=== PATIENT | female | born 1990 | race Caucasian/White ===

== ENCOUNTER 2016-07-11 03:12 | Inpatient (IN) | payer OTHER ==
[~2016-07-11] VITALS: Ht 167.6 cm; Wt 60.8 kg
[2016-07-11 04:07] LABS: Basophils # (auto) 0.1 uL; Basophils % (auto) 1.1 % (0.0-2.0); Eosinophils # (auto) 0.1 uL; Eosinophils % (auto) 0.9 % (0.0-7.0); Hematocrit 42.7 % (36.0-46.0); Hemoglobin 14.4 g/dL (12.2-16.2); Lymphocytes # (auto) 2.5 uL; Lymphocytes % (auto) 32.7 % (10.0-50.0); Mean Corpuscular Hemoglobin 32.1 pg (28.0-32.0); Mean Corpuscular Hgb Conc. 33.6 g/dL (32.0-36.0); Mean Corpuscular Volume 95.3 fL (80.0-100.0); Mean Platelet Volume 7.8 fL (7.4-10.4); Monocytes # (auto) 0.2 uL; Monocytes % (auto) 2.9 % (0.0-12.0); Neutrophils # (auto) 4.8 uL; Neutrophils % (auto) 62.4 % (37.0-80.0); Platelet Count (auto) 393 10^3/uL (140-450); Red Cell Distribution Width 13.1 % (11.6-16.0); White Blood Cell 7.7 10^3/uL (4.4-10.8)
[2016-07-11] MEDS ORDERED: SODIUM CHLORIDE 0.9% 1,000 ML IV ONE (04:15)
[2016-07-11 04:22] LABS: Albumin 4.9 g/dL (3.4-5.0); BUN/Creatinine Ratio 10.3; Calcium 8.4 mg/dL (8.5-10.1); Potassium 3.6 mmol/L (3.5-5.1)
[2016-07-11 04:24] LABS: Salicylate 4.5 mg/dL (2.8-20.0)
[2016-07-11 04:30] LABS: Bilirubin, Total 0.3 mg/dL (0.2-1.0)
[2016-07-11 04:39] LABS: Acetaminophen < 2.0 ug/mL (10-30)
[2016-07-11 05:26] LABS: Urine RBC None Seen /hpf (0 - 4)
[2016-07-11 05:53] LABS: Urine Bilirubin Negative (Negative); Urine Blood Negative /uL (Negative); Urine Color Colorless (Yellow); Urine Glucose Normal (Normal); Urine Ketone Negative (Negative); Urine Nitrite Negative (Negative); Urine Urobilinogen Normal (Negative)
[2016-07-11] MEDS ORDERED: lamoTRIgine 100 MG TAB PO ONE (06:15)
[2016-07-11] MEDS ORDERED: SOD CHL 0.45% 1,000 ML IV ONE (07:00)
[2016-07-11] MEDS ORDERED: MIDAZOLAM HCL 1MG/1ML-2 ML VIAL IV ONE ×2 (07:00→08:00)
[2016-07-11] MEDS ORDERED: IBUPROFEN 600 MG TAB PO PRN (09:15)
[2016-07-11] MEDS ORDERED: TEMAZEPAM 15 MG CAP PO PRN (09:15)
[2016-07-11] MEDS ORDERED: ALBUTEROL SULF 2.5 MG/0.5ML(0.5%) NEB SOLN NEB PRN (09:15)
[2016-07-11] MEDS ORDERED: DOCUSATE SOD 100 MG CAP PO PRN (09:15)
[2016-07-11] MEDS ORDERED: LORazepam 2MG/ML-1ML VIAL IV PRN (09:15)
[2016-07-11] MEDS ORDERED: MORPHINE SULF INJ 2 MG/ML SYRINGE 1ML IV PRN (09:15)
[2016-07-11] MEDS ORDERED: ACETAMINOPHEN 325 MG TAB PO PRN (09:15)
[2016-07-11] MEDS ORDERED: NITROGLYCERIN 0.4 MG SL TAB SL PRN (09:15)
[2016-07-11] MEDS ORDERED: ALUM & MAG HYDROX-SIMETH LIQ(MAALOX) 30 ML PO PRN (09:30)
[2016-07-11] MEDS ORDERED: chlordiazePOXIDE HCL 25 MG CAP PO PRN (09:30)
[2016-07-11] MEDS: BUDESONIDE (INHALATION) 0.5 MG/2 ML NEB NEB SCH ×2 (10:00→18:37)
[2016-07-11] MEDS: clonazePAM 0.5 MG TAB PO SCH ×2 (10:00→21:36)
[2016-07-11] MEDS: NAPROXEN 500 MG TAB PO SCH ×2 (10:00→21:38)
[2016-07-11] MEDS: MULTIPLE VITAMIN TAB PO SCH (10:00)
[2016-07-11] MEDS: ASCORBIC ACID 500 MG TAB PO SCH ×2 (10:00→21:37)
[2016-07-11] MEDS: ZINC SULFATE 220 MG CAP PO SCH (10:00)
[2016-07-11] MEDS: ONDANSETRON HCL 4 MG/2 ML VIAL IV PRN (10:38)
[2016-07-11] MEDS: MORPHINE SULF INJ 2 MG/ML SYRINGE 1ML IV PRN ×2 (10:38→20:34)
[2016-07-11 10:50] VITALS: BP 101/83
[2016-07-11 13:00] VITALS: BP 90/40
[2016-07-11 13:39] VITALS: BP 101/83
[2016-07-11] MEDS: SODIUM CHLOR 0.9% PF (SALINE LOCK) 10ML VIAL IV SCH ×2 (13:52→21:36)
[2016-07-11] MEDS: HYDROcodone-ACET 5/325MG TAB PO PRN (15:46)
[2016-07-11 17:00] VITALS: BP 95/45
[2016-07-11 20:00] VITALS: BP 97/53
[2016-07-11 21:20] VITALS: BP 97/53
[2016-07-11] MEDS ORDERED: lamoTRIgine 100 MG TAB PO SCH (22:00)
[2016-07-12] MEDS: MORPHINE SULF INJ 2 MG/ML SYRINGE 1ML IV PRN ×2 (02:00→09:14)
[2016-07-12 05:00] VITALS: BP 94/60
[2016-07-12] MEDS: SODIUM CHLOR 0.9% PF (SALINE LOCK) 10ML VIAL IV SCH (06:05)
[2016-07-12 06:28] LABS: Basophils # (auto) 0 uL; Basophils % (auto) 0.5 % (0.0-2.0); Eosinophils # (auto) 0.1 uL; Eosinophils % (auto) 2.1 % (0.0-7.0); Hematocrit 35.6 % (36.0-46.0); Hemoglobin 11.8 g/dL (12.2-16.2); Lymphocytes # (auto) 3.1 uL; Mean Corpuscular Hemoglobin 31.8 pg (28.0-32.0); Mean Corpuscular Hgb Conc. 33.3 g/dL (32.0-36.0); Mean Corpuscular Volume 95.6 fL (80.0-100.0); Monocytes # (auto) 0.4 uL; Monocytes % (auto) 6.8 % (0.0-12.0); Neutrophils # (auto) 2.9 uL; Neutrophils % (auto) 43.6 % (37.0-80.0); Platelet Count (auto) 327 10^3/uL (140-450); Red Cell Distribution Width 13.3 % (11.6-16.0); White Blood Cell 6.6 10^3/uL (4.4-10.8)
[2016-07-12 07:05] LABS: Albumin 3.5 g/dL (3.4-5.0); BUN/Creatinine Ratio 16.2; Bilirubin, Total 0.5 mg/dL (0.2-1.0); Calcium 8.6 mg/dL (8.5-10.1); Potassium 3.8 mmol/L (3.5-5.1); Total Protein 5.5 g/dL (6.4-8.2)
[2016-07-12] MEDS: BUDESONIDE (INHALATION) 0.5 MG/2 ML NEB NEB SCH (07:28)
[2016-07-12 09:00] VITALS: BP 107/63
[2016-07-12] MEDS: ZINC SULFATE 220 MG CAP PO SCH (09:13)
[2016-07-12] MEDS: ASCORBIC ACID 500 MG TAB PO SCH (09:14)
[2016-07-12] MEDS: NAPROXEN 500 MG TAB PO SCH (09:14)
[2016-07-12] MEDS: clonazePAM 0.5 MG TAB PO SCH (09:14)
[2016-07-12] MEDS: MULTIPLE VITAMIN TAB PO SCH (09:14)
[2016-07-12] MEDS: ONDANSETRON HCL 4 MG/2 ML VIAL IV PRN (09:15)
[2016-07-12] MEDS ORDERED: lamoTRIgine 100 MG TAB PO SCH (10:00)
[2016-07-12 12:26] VITALS: BP 96/64
[2016-07-12] MEDS: HYDROcodone-ACET 5/325MG TAB PO PRN (13:38)
== END 2016-07-12 16:17 | disposition home or self-care (01) | DRG 101 ==
LOC: EDBD 03:12 → ER 03:12 → TELE 03:13 → TELE-WESTW 10:49 → WEST WING 22:19
PROVIDERS: ADMIT Internal Medicine; ATTEND Internal Medicine
DX: G40.909 Epilepsy, unspecified, not intractable, without status epilepticus (principal); E87.0 Hyperosmolality and hypernatremia; F10.239 Alcohol dependence with withdrawal, unspecified; J45.909 Unspecified asthma, uncomplicated; E83.51 Hypocalcemia; M19.90 Unspecified osteoarthritis, unspecified site; R32 Unspecified urinary incontinence; S05.11XA Contusion of eyeball and orbital tissues, right eye, initial encounter; Y90.8 Blood alcohol level of 240 mg/100 ml or more; W18.30XA Fall on same level, unspecified, initial encounter; Y93.89 Activity, other specified; Y92.099 Unspecified place in other non-institutional residence as the place of occurrence of the external cause; Y99.8 Other external cause status; Z72.820 Sleep deprivation; Z71.41 Alcohol abuse counseling and surveillance of alcoholic; Z88.6 Allergy status to analgesic agent; Z88.1 Allergy status to other antibiotic agents; Z88.0 Allergy status to penicillin; Z88.2 Allergy status to sulfonamides; Z91.018 Allergy to other foods
CPT/HCPCS: 36415; 51702; 70450; 71020; 80053; 80307; 80320; 80329; 81001; 84702; 85025; 93005; 94640; 96361; 96374; 96376; 99291; J2250; J2405